=== PATIENT | female | born 1935 ===

== ENCOUNTER 2019-08-05 14:49 | Emergency (ER) | payer OTHER ==
[~2019-08-05] VITALS: Ht 160 cm; Wt 67.1 kg
[2019-08-05] MEDS ORDERED: ATORVASTATIN CA10 MG (15:11)
[2019-08-05] MEDS ORDERED: ARICEPT10 MG (15:11)
[2019-08-05] MEDS ORDERED: TIROSINT25 MCG (15:11)
[2019-08-05] MEDS ORDERED: HORIZANT300 MG (15:11)
[2019-08-05] MEDS ORDERED: ASPIR 8181 MG (15:12)
== END 2019-08-05 18:58 | disposition home or self-care (01) ==
LOC: ER 14:49
DX: S70.02XA Contusion of left hip, initial encounter (principal); S50.01XA Contusion of right elbow, initial encounter; S40.012A Contusion of left shoulder, initial encounter; S60.212A Contusion of left wrist, initial encounter; S80.02XA Contusion of left knee, initial encounter; S19.89XA Other specified injuries of other specified part of neck, initial encounter; M12.562 Traumatic arthropathy, left knee; M12.532 Traumatic arthropathy, left wrist; G30.8 Other Alzheimer's disease; F02.80 Dementia in other diseases classified elsewhere, unspecified severity, without behavioral disturbance, psychotic disturbance, mood disturbance, and anxiety; W18.09XA Striking against other object with subsequent fall, initial encounter; Y93.89 Activity, other specified; Y92.018 Other place in single-family (private) house as the place of occurrence of the external cause; Y99.8 Other external cause status

== ENCOUNTER 2019-08-11 11:45 | Inpatient (IN) | payer OTHER ==
[~2019-08-11] VITALS: Ht 160 cm; Wt 65.8 kg
[~2019-08-11 11:45] MED LIST: ARICEPT10 MG; ASPIR 8181 MG; ATORVASTATIN CA10 MG; HORIZANT300 MG; TIROSINT25 MCG
[2019-08-11] MEDS ORDERED: ARICEPT10 MG PO (12:14)
[2019-08-11] MEDS ORDERED: ALPHAGAN P5 M2 OP (12:15)
[2019-08-11] MEDS ORDERED: PRILOSEC OTC20 MG PO (12:15)
[2019-08-11] MEDS ORDERED: LUBRICANT EYE D10 ML OP (12:15)
[2019-08-11] MEDS ORDERED: REFRESH PLUS1 EACH OP (12:16)
== END 2019-08-15 16:09 | DRG 470 ==
LOC: O/R 11:45 → SURG 08-13 05:23 → O/R 08-13 05:23 → SURG 08-13 15:42
PROVIDERS: ADMIT Orthopaedic Surgery
PROC: 0SRD0J9 Replacement of Left Knee Joint with Synthetic Substitute, Cemented, Open Approach (ICD-10-PCS; principal; 2019-08-13 07:00)
DX: M17.12 Unilateral primary osteoarthritis, left knee (principal); M81.0 Age-related osteoporosis without current pathological fracture